=== PATIENT | male | born 1935 | race Caucasian/White ===

== ENCOUNTER 2018-10-12 13:53 | Emergency (ER) | payer BC ==
[~2018-10-12] VITALS: Ht 180.3 cm; Wt 74.4 kg
[2018-10-12] MEDS ORDERED: FLONASE 0.05%50 MCG NASAL (14:24)
[2018-10-12] MEDS ORDERED: DICLOFENAC SODI25 MG PO (14:25)
[2018-10-12] MEDS ORDERED: LIPITOR 20 MG T20 M1 PO (14:26)
[2018-10-12] MEDS ORDERED: COZAAR 25 MG TA25 M2 PO (14:26)
[2018-10-12] MEDS ORDERED: FLOMAX0.4 MG PO (14:26)
[2018-10-12] MEDS ORDERED: CELEXA20 MG PO (14:27)
[2018-10-12] MEDS ORDERED: VITAMIN D3400 UNIT PO (14:27)
[2018-10-12 14:56] LABS: ABSOLUTE BASOPHILS 0.1 thou/uL (0.0-0.2); ABSOLUTE EOSINOPHILS 0.1 thou/uL (0.0-0.7); ABSOLUTE LYMPHOCYTES 0.8 thou/uL (0.8-5.3); ABSOLUTE MONOCYTES 0.5 thou/uL (0.0-1.2); ABSOLUTE NEUTROPHILS 3.7 thou/uL (1.6-8.1); BASOPHILS 1.1 %; EOSINOPHILS 1.2 %; HEMATOCRIT 35.7 % (42.0-52.0); LYMPHOCYTES 16.3 %; MCH 33.1 pg (26.0-34.0); MCHC 33.6 g/dL (28.0-37.0); MCV 98.6 fL (80.0-100.0); MONOCYTES 8.9 %; MPV 8.1 fl. (7.2-11.1); NUCLEATED RBCS 0 /100WBC; PLATELET COUNT* 303 thou/uL (150-400); POLYS 72.5 %; RBC 3.62 mil/uL (4.50-6.00); RDW-CV 14.2 % (10.5-14.5); WBC 5.1 thou/uL (4.0-11.0)
[2018-10-12 15:02] LABS: CREATININE 1.4 mg/dL (0.6-1.3)
[2018-10-12 15:07] LABS: ALBUMIN 3.8 g/dL (3.4-5.0); TOTAL BILIRUBIN 0.9 mg/dL (<0.1-1.0); TOTAL PROTEIN 7.2 g/dL (6.4-8.2)
[2018-10-12 16:43] VITALS: BP 170/89
== END 2018-10-12 16:44 | disposition home or self-care (01) ==
LOC: M.ERS 13:53
PROVIDERS: Personal Emergency Response Attendant
DX: K59.00 Constipation, unspecified (principal); F17.210 Nicotine dependence, cigarettes, uncomplicated; I10 Essential (primary) hypertension; K21.9 Gastro-esophageal reflux disease without esophagitis; Z88.6 Allergy status to analgesic agent; Z90.49 Acquired absence of other specified parts of digestive tract

== ENCOUNTER → 2019-01-10 | Outpatient (CLI) | payer BC ==
[~2019-01-10] MED LIST: CELEXA20 MG PO; COZAAR 25 MG TA25 M2 PO; DICLOFENAC SODI25 MG PO; FLOMAX0.4 MG PO; FLONASE 0.05%50 MCG NASAL; LIPITOR 20 MG T20 M1 PO; VITAMIN D3400 UNIT PO
== END ==
LOC: M.ULTRA 12-31 10:30
DX: N43.3 Hydrocele, unspecified (principal); N44.2 Benign cyst of testis; N45.2 Orchitis

== ENCOUNTER 2019-09-01 14:09 | Inpatient (IN) | payer BC ==
[~2019-09-01] VITALS: Ht 177.8 cm; Wt 68.9 kg
[~2019-09-01 14:09] MED LIST changes: -COZAAR 25 MG TA25 M2 PO; +COZAAR100 MG PO
[2019-09-01 14:16] VITALS: BP 154/65
[2019-09-01] MEDS ORDERED: NAMENDA 5 MG TAB5 M1 PO (14:22)
[2019-09-01] MEDS ORDERED: ASA81BEC PO (14:22)
[2019-09-01 14:45] LABS: ABSOLUTE EOSINOPHILS 0.1 thou/uL (0.0-0.7); ABSOLUTE LYMPHOCYTES 0.8 thou/uL (0.8-5.3); ABSOLUTE MONOCYTES 0.9 thou/uL (0.0-1.2); ABSOLUTE NEUTROPHILS 8.1 thou/uL (1.6-8.1); BASOPHILS 0.5 %; EOSINOPHILS 0.6 %; HEMATOCRIT 34.4 % (42.0-52.0); HEMOGLOBIN 11.7 gm/dL (14.0-18.0); LYMPHOCYTES 8.5 %; MCH 33.5 pg (26.0-34.0); MCHC 34.1 g/dL (28.0-37.0); MCV 98.3 fL (80.0-100.0); MONOCYTES 8.8 %; MPV 8.3 fl. (7.2-11.1); NUCLEATED RBCS 0 /100WBC; PLATELET COUNT* 326 thou/uL (150-400); POLYS 81.6 %; RDW-CV 14.2 % (10.5-14.5); WBC 9.9 thou/uL (4.0-11.0)
[2019-09-01 14:47] LABS: CALCIUM 8.5 mg/dL (8.5-10.1); CREATININE 1.5 mg/dL (0.6-1.3); POTASSIUM 3.8 mmol/L (3.5-5.1)
[2019-09-01 14:48] LABS: APTT 27.1 Seconds (25.0-31.3); INR 1.1; PROTIME 10.9 Seconds (9.20-11.50)
[2019-09-01 15:02] LABS: ALBUMIN 3.7 g/dL (3.4-5.0); CK-MB MASS 3.4 ng/mL (<0.5-3.6); TOTAL BILIRUBIN 1.6 mg/dL (<0.1-1.0)
[2019-09-01 15:57] LABS: URINE BLOOD TRACE (Negative); URINE CLARITY CLEAR; URINE COLOR YELLOW; URINE GLUCOSE-RANDOM TRACE (Negative); URINE KETONES NEGATIVE (Negative); URINE LEUKOCYTES-REFLEX NEGATIVE (Negative); URINE NITRITE-REFLEX NEGATIVE (Negative); URINE PROTEIN 1+ (Negative); URINE SPECIFIC GRAVITY >= 1.030 (1.005-1.030)
[2019-09-01 16:10] LABS: ICTOTEST (BILI CONFIRMATORY) Negative (Negative); URINE BILIRUBIN 1+ (Negative)
--- NOTE | 2019-09-01 17:20 | NUR ---
PT MOVED TO ROOM #3 FOR SAFETY REASONS HE HAS DEMENTIA, IS TRYING TO GET OUT OF BED, HAS UNSTEADY GAIT AND NOW ATTEMPTING TO CHEW OFF HIS ID BAND. PT AGGITATED, IN HOSPITAL BED AND IS EATING HIS DINNER WITH HIS FINGERS.
--- NOTE | 2019-09-01 17:54 | NUR ---
DREAD, PT'S [id number], IS COMING TO SIT WITH THE PATIENT UNTIL PT'S OTHER DAUGHTER, WAGNER RANDOLPH, ARRIVES TO SIT WITH THE PATIENT AT 1900 TODAY. MOTOR INSPECTION MECHANIC MADE AWARE THAT THE PATIENT WILL NEED FAMILY MEMBER TO STAY WITH HIM THROUGHOUT THE NIGHT. MOTOR INSPECTION MECHANIC NOTIFIED ADMITTING SO THEY ALLOW PT'S DAUGHTER IN TO ER.
--- NOTE | 2019-09-01 18:09 | NUR ---
A TICK WAS SEEN ON THE PATIENT'S TESTICLES. IT WAS SUCCESSFULLY REMOVED BY DR. LEON.
--- NOTE | 2019-09-01 19:45 | NUR ---
PT'S DAUGHTER DREAD'S CELL PHONE NUMBER IS [phone].
[2019-09-01 21:00] VITALS: BP 152/67
--- NOTE | 2019-09-01 21:00 | NUR ---
RECEIVED REPORT FROM ER AND ADMITTED TO ROOM. DGT AT BEDSIDE AND ASSISTING WITH ADMISSION QUESTIONS. PT RESTLESS, LETHARGIC AND CONFUSED X4. PT ABLE TO FOLLOW VERY SIMPLE COMMANDS. LT HAND INGOT HEADER STRONG, RT INGOT HEADER ABSENT. NOT ABLE TO ANSWER QUESTIONS EXCEPT HIS NAME WAS BILL. UNABLE TO DO ACCURATE NIH SCALE TELEMETRY APPLIED SHOWING SR. SEE ADMISSION ASSESSMENT AND HX.
[2019-09-01 21:10] VITALS: BP 132/85
--- NOTE | 2019-09-01 22:30 | NUR ---
PT CONT TO BE RESTLESS BUT ABLE TO COOPERATE MORE. RT HAND GAS JOCKEY NOW MOD. ABLE TO HOLD UP RT ARM WITH DRIFT AND RT LEG WITH DRIFT. ABLE TO SWALLOW WATER WITHOUT COUGHING OR CHOKING. HS MEDS GIVEN, PT CHEWED THEM.
[2019-09-02] VITALS: BP 167/79
[2019-09-02 04:00] VITALS: BP 166/61
[2019-09-02 05:14] LABS: ABSOLUTE BASOPHILS 0.1 thou/uL (0.0-0.2); ABSOLUTE EOSINOPHILS 0.2 thou/uL (0.0-0.7); ABSOLUTE MONOCYTES 0.9 thou/uL (0.0-1.2); ABSOLUTE NEUTROPHILS 8.1 thou/uL (1.6-8.1); BASOPHILS 0.5 %; EOSINOPHILS 1.9 %; HEMATOCRIT 33.6 % (42.0-52.0); HEMOGLOBIN 11.4 gm/dL (14.0-18.0); LYMPHOCYTES 9.9 %; MCH 33.7 pg (26.0-34.0); MONOCYTES 8.4 %; MPV 8.2 fl. (7.2-11.1); NUCLEATED RBCS 0 /100WBC; PLATELET COUNT* 302 thou/uL (150-400); POLYS 79.3 %; RBC 3.39 mil/uL (4.50-6.00); RDW-CV 14.3 % (10.5-14.5); WBC 10.2 thou/uL (4.0-11.0)
[2019-09-02 05:35] LABS: ALBUMIN 3.3 g/dL (3.4-5.0); ALKALINE PHOSPHATASE 80 U/L (46-116); ANION GAP 8 mmol/L (7-16); BUN 39 mg/dL (7-18); CALCIUM 8.5 mg/dL (8.5-10.1); CHLORIDE 108 mmol/L (98-107); CHOLESTEROL 79 mg/dL (<200); CO2 27 mmol/L (21-32); CREATININE 1.1 mg/dL (0.6-1.3); GLUCOSE 113 mg/dL (70-99); HDL CHOLESTEROL 28 mg/dL (>40); LDL CHOLESTEROL 42 mg/dL (<100); POTASSIUM 3.3 mmol/L (3.5-5.1); SGOT 36 U/L (15-37); SGPT 16 U/L (30-65); SODIUM 143 mmol/L (136-145); TC:HDL 2.8 Ratio (Not establshd); TOTAL BILIRUBIN 1.2 mg/dL (<0.1-1.0); TOTAL PROTEIN 6.4 g/dL (6.4-8.2); TRIGLYCERIDE 49 mg/dL (<150); VLDL 10 mg/dL (<40)
[2019-09-02 05:45] LABS: SERUM ASSESSMENT Clear
--- NOTE | 2019-09-02 06:18 | NUR ---
REMAINS CONFUSED ALL NIGHT. ABLE TO MOVE ALL EXTREMITIES. STOOD AT BEDSIDE. INCONT OF URINE. FREQ REMOVING GOWN AND TELE PACK. DGT STAYED AT BEDSIDE. TELEMETRY SHOWING SR. HS GOALS OF REST AND SAFETY ACHIEVED. HOURLY ROUNDING OSBERVED.
[2019-09-02 08:00] VITALS: BP 150/70
[2019-09-02 11:30] VITALS: BP 165/84
--- NOTE | 2019-09-02 15:38 | EKG ---
[place] [address] ELECTROCARDIOGRAM REPORT Name: FELIZOSMAN Room: [address] ADM IN .R.#: [id number] Admission: 09/01/19 Attend Phys: Vinicio Hyde Discharge: Date of : 31 Date of Service: 09/01/19 1429 Report #: [id number] THIS REPORT FOR: //name// [facility] ED Test Date: 2019-09-01 Test Time: 14:29:15 Pat Name: OSMAN PIPER Department: Room: [facility] Gender: M Tumbling And Rolling Supervisor: ELENA : 1935 Requested By: Javier Bryant Order Number: [id number] MD: Toño Gupta Measurements Intervals Dewart Rate: 88 P: 27 [place]: 148 QRS: -4 QRSD: 87 T: 30 QT: 344 QTc: 417 Interpretive Statements Sinus rhythm Probable left atrial enlargement No previous ECG available for comparison Electronically Signed On 09-02-2019 15:37:45 CDT by Toño Gupta [email or web address] <ELECTRONICALLY SIGNED> By: Toño Gupta MD, [facility] 09/02/19 1537 1429 1429 Toño Gupta MD, [facility] /EPI
[2019-09-02 16:00] VITALS: BP 164/86
--- NOTE | 2019-09-02 16:56 | NUR ---
PT.IN BED. PT.CONFUSED, TRYS TO GET OUT OF BED. SPOKE WITH DAUGHTER,MAMADOU,AT BEDSIDE. SHE IS HIS DPOA. EXPLAINED SHE IS HIS STEPDAUGHTER BUT HE APPOINTED HER HIS DPOA. SHE HAS 2 STEPSISTERS AND A STEPBROTHER AND HER OWN BROTHER. SHE SAID PT.LIVES ALONE AND SHOULD NOT HAVE BEEN. EVERYONE DDES NOT AGREE BUT NOW SHE WILL BE THE ONE TO MAKE THE DECISIONS SINCE IT HAS COME TO HIM HAVING A STROKE. HE ALSO HAD BEEN DRIVING. DOES NOT COOK, NO USE OF DME AND HASN'T BEEN DOING HIS PERSONAL HYGEINE. THEY HAD BEEN TAKING TURNS CHECKING IN ON HIM,BRINGING HIM FOOD,SHOPPING, ETC. EXPLAINED DRS RECOMMENDATIONS OF LTC WITH [facility]. EXPLAINED THERAPY HAS NOT BEEN ABLE TO SEE PT.DUE TO HIS CONFUSION. GAVE HER LIST OF SNFS THAT TAKE HIS INSURANCE. ALSO A LIST OF LTC FACIITIES. SHE WILL REVIEW THEM AND MAKE SOME CHOICES. CM WILL FOLLOW UP WITH HER TOMORROW.
[2019-09-02 20:00] VITALS: BP 182/77
--- NOTE | 2019-09-02 20:00 | NUR ---
RECEIVED REPORT AND ASSUMED CARE OF PT, ASSESSMENT COMPLETED. PT VERY RESTLESS AND UNCOOPERATIVE. SITTER AT BEDSIDE. TELEMETRY ON SHOWING SR. WILL CONT TO MONITOR AND ASSIST NEEDED.
[2019-09-03 04:00] VITALS: BP 178/66
--- NOTE | 2019-09-03 05:58 | NUR ---
PT RESTLESS AND ATTEMPTING TO GET OUT OF BED, PT STRONG AND HAS BEEN HITTING ALONG WITH GRABBING FOR INTENT TO HARM. IM AND IV MEDS GIVEN. NEEDED 4 ASSIST TO RESTART IV. INCONT OF URINE. NO CHANGE IN TELEMETRY. HS GOALS OF REST AND SAFETY PARTICALLY ACHIEVED. SITTER REMAINS AT BEDSIDE FOR PT SAFETY.
--- NOTE | 2019-09-03 11:21 | NUR ---
DISCUSSED WITH PTS DAUGHTER AND MAMADOU VARELA. SHE SAID SAID PT.MAY NEED TO GO TO [facility] PRIOR TO SNF IF HE DOESN'T CALM DOWN SOME. IS NEEDING 1:1 SITTER. AT DISCHARGE SHE WOULD LIKE TO HAVE HIM GO TO SNF FIRST HE WILL NEED SOME REHAB AND THEN ONTO LTC/[facility]. SHE WOULD LIKE TO TRY [facility] AND [facility]. EXPLAINED THESE MAY NOT HAVE LTC OPTIONS. ALSO DISCUSSED CODE STATUS. VISH LOPEZ IN DISCUSSION,ALSO. DAUGHTER SAID SHE WOULD THINK ABOUT IT. SHE IS AWARE OF THIS TIME HE IS A FULL CODE.
[2019-09-03 11:52] VITALS: BP 132/66
--- NOTE | 2019-09-03 17:19 | 2DMMODE ---
[place] [address] 2 D/M-MODE ECHOCARDIOGRAM Name: OSMAN PIPER Room: [address] IN [facility]#: [id number] Admission: 09/01/19 Attend Phys: Vinicio Hyde Discharge: Date of : 31 Date of Service: 09/03/19 1718 Report #: [id number] THIS REPORT FOR: cc: Toño Mcdonald John E. DO Liston, Michael J. MD [facility] ~ APPROVED REPORT Study performed: 09/03/2019 11:32:35 EXAM: Comprehensive 2D, Doppler, and color-flow Echocardiogram Patient Location: In-Patient BSA: 1.90 HR: 80 bpm BP: 178/66 mmHg Other Information Study Quality: Technically Difficult Technically limited study due to inability to position patient, uncooperative patient. Indications CVA/TIA Echo Enhancing Agent Indication: Rule out Shunt Agent(s) / Amount(s) Used: Agitated Saline cc 2D Dimensions IVSd: 14.93 (7-11mm) LVOT Diam: 21.16 (18-24mm) LVDd: 42.49 mm PWd: 13.44 (7-11mm) Ascending Ao: 28.79 (22-36mm) LVDs: 36.53 (25-40mm) Aortic Root: 37.28 mm Volumes Left Atrial Volume (Systole) LA ESV Index: 23.60 mL/m2 Aortic Valve AoV Peak David.: 1.31 m/s AO Peak Gr.: 6.84 mmHg LVOT Max P.77 mmHg AO Mean Gr.: 3.69 mmHg LVOT Mean P.13 [place] [address] 2 D/M-MODE ECHOCARDIOGRAM Name: FELIZOSMAN Room: [address] IN [facility].#: [id number] Admission: 09/01/19 Attend Phys: Vinicio Hyde Discharge: Date of : 31 Date of Service: 09/03/19 1718 Report #: [id number] LVOT Max V: 1.20 m/s AO V2 VTI: 23.12 cm LVOT Mean V: 0.82 m/s DAYDAY (VTI): 3.30 cm2 LVOT V1 VTI: 21.67 cm Mitral Valve MV Mean Gr.: 3.00 mmHg E/A Ratio: 0.41 MV Decel. Time: 163.68 ms MV E Max David.: 0.70 m/s MV PHT: 47.47 ms MVA (PHT): 4.63 cm2 TDI E/Lateral E': 14.00 E/Medial E': 10.00 Medial E' David.: 0.07 m/s Lateral E' David.: 0.05 m/s Pulmonary Valve PV Peak David.: 1.06 m/s PV Peak Gr.: 4.48 mmHg Left Ventricle The left ventricle is normal size. There is normal LV segmental wall motion. Mild concentric left ventricular hypertrophy. Left ventricular systolic function is normal. LVEF is 60-65%. Grade I - abnormal relaxation pattern. Right Ventricle The right ventricle is normal size. The right ventricular systolic function is normal. Atria The left atrium size is normal. Lipomatous hypertrophy of the interatrial septum is noted. 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 Right atrium is mildly dilated. Aortic Valve The aortic valve is normal in structure. No aortic regurgitation is present. There is no aortic valvular stenosis. Mitral Valve There is mitral annular calcification. Trace mitral regurgitation. Mild mitral stenosis. Tricuspid Valve The tricuspid valve is normal in structure. Trace [place]icus[place] [address] 2 D/M-MODE ECHOCARDIOGRAM Name: OSMAN PIPER Room: [address]#: [id number] Admission: 09/01/19 Attend Phys: Vinicio Hyde Discharge: Date of : 31 Date of Service: 09/03/19 1718 Report #: [id number] Pulmonic Valve The pulmonary valve is normal in structure. There is no pulmonic valvular regurgitation. Great Vessels The aortic root is normal in size. IVC is normal in size and collapses >50% with inspiration. Pericardium There is no pericardial effusion. <Conclusion> The left ventricle is normal size. Mild concentric left ventricular hypertrophy. Left ventricular systolic function is normal. LVEF is 60-65%. Grade I - abnormal relaxation pattern. Right atrium is mildly dilated. 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 Trace mitral regurgitation. Trace tricuspid regurgitation. IVC is normal in size and collapses >50% with inspiration. <ELECTRONICALLY SIGNED> By: Mitch Solorio MD, FACC 09/03/191717 17 17 Mitch Solorio MD, FACC /INF
--- NOTE | 2019-09-03 17:51 | NUR ---
PT CONFUSED BUT COOPERATIVE WITH DIRECTION. DTR AT BS THIS AM. SITTER IN ROOM FOR PT SAFETY HE CLIMBS OUT OF BED FREQUENTLY. POOR APPETITE. WATER ENCOURAGED. NSR ON MONITOR
[2019-09-03 20:00] VITALS: BP 157/88
[2019-09-04] VITALS: BP 153/88
[2019-09-04 04:00] VITALS: BP 117/59
[2019-09-04 08:36] VITALS: BP 99/55
--- NOTE | 2019-09-04 09:37 | NUR ---
ASSUMED CARE OF PT THIS AM AROUND 714- PROCESSING TECHNICIAN IN PLACE ORDERED, TRACING SR- UPON ASSESSMENT PT NOTED TO BE RESTING IN BED, SITTER AT SIDE FOR SAFETY- PT NOTED TO BE A LITTLE RESTLESS THIS AM, UP AND DOWN IN BED- A&O X1 WITH NOTED CONFUSSION R/T DEMENTIA- CONT OF B/B- ASSIST X1 WITH TRANSFERS- LCTA, RESP EVEN AND [id number], O2 SAT 98% ON RA- ABD SOFT/ROUND/NON-TENDER, BS X4 QUADS- LAST BM UNKNOWN- UP TO BED SIDE CHAIR WITH BREAKFAST THIS AM, FAIR PO INTAKE NOTED- UNABLE TO ACCURATLEY OBTAIN NIH R/T CONFUSSION AND INABILTY TO FOLLOW COMMANDS- PT DENIES ANY C/O PAIN/DISCOMFORT AT THIS TIME- CALL LIGHT AND PERSONAL BELONGINGS WITH IN REACH- HOURLY ROUNDS IN PLACE R/T SAFETY/NEEDS- ALL NEEDS MET AT THIS TIME-WCTM
[2019-09-04 12:00] VITALS: BP 130/62
--- NOTE | 2019-09-04 12:00 | NUR ---
FAXED REFFERALS FOR INITIAL SNF AND THEN POSSIBLE LTC TO [facility]. PT.CALMING SOME AND MORE COOPERATIVE.
[2019-09-04 16:00] VITALS: BP 106/65
[2019-09-04 20:00] VITALS: BP 157/70
[2019-09-05] VITALS: BP 148/71
[2019-09-05 08:00] VITALS: BP 166/75
--- NOTE | 2019-09-05 10:00 | NUR ---
SPOKE WITH DAUGHTER,MAMADOU. SHE SAID SHE SPOKE WITH [facility]AND [facility]AB. ONE OF HER RELATIVES HAD LIVED AT [facility] SOME YEARS AGO. [facility] SAID THEY CAN NOT ACCEPT NEW PTS UNTIL SEPTEMBER 10. THEY CAN TAKE PT.FOR LTC THEN. MAMADOU SAID SHE WOULD STILL LIKE TO START WITH SNF AT SOMEWHERE UP HERE AND THEN WHEN FINISHED WITH SNF TAKE HIM TO [facility].
[2019-09-05 12:00] VITALS: BP 136/63
[2019-09-05 16:00] VITALS: BP 177/106
[2019-09-05 20:00] VITALS: BP 106/54; BP 85/48
[2019-09-06] VITALS: BP 111/49
[2019-09-06 04:00] VITALS: BP 152/68
[2019-09-06 08:11] VITALS: BP 134/60
--- NOTE | 2019-09-06 09:30 | NUR ---
CALLED [facility] TO SEE IF THEY WOULD BE ABLE TO ACCEPT PT.TO A SKILLED BED WHEN READY FOR DISCHARGE. SHE SAID THEY ARE DECLINING PT. CALLED [facility] TO ASK THE SAME. HAD TO LEAVE . [facility] RETURNED CALL AND SAID THE TEAM IS REVIEWING REFERRLA. PT.MORE IMPLUSIVE DURING THE NIGHT. MORE MED ADJUSTMENT TODAY.
--- NOTE | 2019-09-06 09:40 | NUR ---
ASSUMED CARE OF PT THIS AM AROUND 714- CORRECTIONAL SUPERVISOR LIEUTENANT IN PLACE ORDERED, TRACING SR- UPON ASSESSMENT PT NOTED TO BE RESTING IN BED, EYES CLOSED- PT NOTED TO BE SOMULENT AND HARD TO WAKE R/T ATIVAN ADMINISTRATION ON PRIOR SHIFT-Q [address] INDICATED- VSS, O2 SAT 96% ON RA-LCTA/DIMINISHED IN BASES- ABD SOFT/ROUND/NON-TENDER, BS X4 QUADS- UNABLE TO WAKE THIS AM FOR BREAKFAST- DAUGHTER AT BEDSIDE THIS AM- IV NOTED TO RIGHT FA INTACT AND SL-CALL LIGHT AND PERSONAL BELONGINGS WITH IN REACH- BED ALARM IN PLACE AND WORKING FOR PT SAFETY/NEEDS- HOURLY ROUNDS IN PLACE R/T SAFETY/NEEDS- ALL NEEDS MET AT THIS TIME-WCTM
[2019-09-06 12:20] VITALS: BP 134/60
--- NOTE | 2019-09-06 13:42 | NUR ---
WOUND NURSE: PATIENT SEEN TO ADDRESS SHALLOW INTACT DRY BROWN SCABS ON RIGHT LATERAL MALLEOLUS PROBABLY RELATED TO FRICTION -- PATIENT SLIDING FOOT ALONG THE MATTRESS. WILL OBTAIN HEELMEDIX BOOT FOR RIGHT FOOT FOR PROTECTION FROM FRICTIN AND PRESSURE.
[2019-09-06 15:55] VITALS: BP 157/67
[2019-09-06 20:00] VITALS: BP 148/80
[2019-09-07] VITALS: BP 140/84
[2019-09-07 04:00] VITALS: BP 171/73
--- NOTE | 2019-09-07 05:13 | NUR ---
ASSUMED PT CARE AT APPROX 1930. PT IS SLEEPING BUT IS AROUSABLE WHEN NAME IS CALLED, PT IS ORIENTED TO SELF. ALLIED HEALTH INSTRUCTOR IS TRACING SR. ASSESSMENT DONE AND CHARTED. RIGHT LE BOOT KEPT IN PLACE. PT TRIED TAKING BOOT OFF MULTIPLE TIMES THIS SHIFT AND WOULD NOT KEEP IT ON. PT WAS SLEEPING MOST OF THE NIGHT. NO ACUTE CHANGES THROUGHOUT THIS SHIFT. CALL LIGHT WITHIN REACH. HOURLY ROUNDING DONE AND HIGH FALL PRECAUTIONS IN PLACE FOR PT SAFETY.
[2019-09-07 08:00] VITALS: BP 119/73
--- NOTE | 2019-09-07 11:07 | NUR ---
PT'S DTR AT BS. PT MORE CONFUSED AND WEAKER THAN PREVIOUSLY THIS WEEK. PT REFUSES TO EAT OR DRINK EXCEPT A FEW SIPS. DTR INTERESTED IN HOSPICE AT LTC INSTEAD OF SNF PT GETS AGITATED WITH ACTIVITY AND HAS NOT PROGRESSED WITH PT THIS WEEK BUT WILL DISCUSS WITH OTHER DTR. HOSPICE VISIT TO BE ARRANGED ON MONDAY. ENCOURAGED DTR TO BRING FOOD IN TO SEE IF PT WILL EAT HE REFUSES FOR STAFF
--- NOTE | 2019-09-07 11:43 | NUR ---
SPOKE TO [facility]. PAPER WORK FAXED. ARRANGED FOR INFORMATIONAL VISIT ON MONDAY AT 1300. DTR ROMAN INFORMED.
[2019-09-07 12:00] VITALS: BP 132/92
[2019-09-07 16:00] VITALS: BP 147/85
--- NOTE | 2019-09-07 17:19 | NUR ---
PT RESTING IN BED THROUGHOUT SHIFT,RESTLESS. ALARMS ON. INCONTINENT PT IN CHAIR FOR A FEW HOURS THIS AFTERNOON WITH MAX ASSIST. PT INCREASED WEAKNESS FROM EARLIER THIS WEEK AND MORE CONFUSED PER DTR.PT DROWSY BUT RESISTS SLEEP. PT NOT SPEAKING JUST MAKES INTELLIGBLE SOUNDS. PT ATTEMPTS TO BE COMBATIVE TO STAFF BUT EASILY REDIRECTED. NO PRN MEDS WERE GIVEN FOR AGITATION PT CALMS QUICKLY WHEN LEFT ALONE. PT REFUSES TO EAT AND WILL ONLY TAKE SMALL SIPS OF ENSURE. IV BOLUS GIVEN THIS AFTERNOON. DTR AT BS. PLAN OF CARE DISCUSSED. SHE STATES SHE WOULD LIKE HOSPICE TO COME SEE PT AND POSSIBLY DC PT TO LTC WITH HOSPICE.
[2019-09-07 20:00] VITALS: BP 173/79
[2019-09-08] VITALS: BP 165/93
[2019-09-08 03:47] VITALS: BP 148/88
--- NOTE | 2019-09-08 07:05 | NUR ---
PT ORIETED TO SELF @ TIMES. SPEECH MORE LEGIBLE THIS AM THAN LAST NIGHT. PT RESTLESS BUT NOT TRYING TO CLIMB OUT OF BED. SWALLOWED MEDS IN PUDDING. INCONTINENT. BED CHANGE THIS AM. TURNS SELF INDEPENDENTLY. CALL LIGHT IN REACH. HOURLY ROUNDING FOR SAFETY.
[2019-09-08 09:00] VITALS: BP 113/47
--- NOTE | 2019-09-08 09:30 | NUR ---
ASSUMED PT. CARE AND RECEIVED REPORT AT 0730. PT. WILL AROUSE, IS NOT ANSWERING QUESTIONS OR FOLLOWING COMMANDS. ON RA AT 94%. INCONT. OF URINE AND PT. REMOVING GOWN AND BLANKETS, SOMEWHAT RESTLESS IN BED. FULL ASSESSMENT COMPLETED, REFER TO CHARTING. PT. ASSISTED WITH BREAKFAST, BUT WOULD ONLY EAT 2 BITES AND DRANK PART OF ENSURE. FALL PRECAUTIONS IN PLACE, WILL CONTINUE WITH PLAN OF CARE.
[2019-09-08 11:38] LABS: CALCIUM 8.8 mg/dL (8.5-10.1); MAGNESIUM 2.3 mg/dL (1.8-2.4); POTASSIUM 3.9 mmol/L (3.5-5.1)
[2019-09-08 16:00] VITALS: BP 125/88
--- NOTE | 2019-09-08 17:53 | NUR ---
PT. STABLE THROUGH OUT SHIFT. PT. DID INCREASE INTAKE AT LUNCH WITH FAMILY AT BEDSIDE, ATE PUDDING AND ENSURE ONLY AT DINNER, SPIT OUT OTHER FOODS OFFERED. PT. UP TO RECLINER TODAY, 2 PERSON ASSIST DOES NOT FOLLOW COMMANDS. PT CONTINUES TO WANT TO BE WITHOUT CLOTHING.
--- NOTE | 2019-09-08 19:07 | NUR ---
AT APPROX. 1830 PT. BECOMING VERY AGRIVATED, YELLING/SWINGING/KICKING AT STAFF. CHAR FILTER TANK TENDER HEAD CURRENTLY AT BEDSIDE FOR SAFETY, PAGED FOR PRN MED.,AWAITING CALL BACK.
--- NOTE | 2019-09-09 05:54 | NUR ---
OBSERVED PT FROM NURSING STATION ALL NIGHT, PT WAS COMBATIVE AND CONFUSED AT START OF SHIFT, GIVEN MEDICATION TO RELAX PT. PT RESTED COMFORTABLE THROUGHOUT SHIFT WITHOUT INCIDENT. VITALS SIGNS HELD TO REDUCE ADJITATION. PT ROOM IS RIGHT INFRONT OF NUSES DESK, VEIWED OFTEN. PT OBSERVED SELF TURNING AND SITTING UP AT TIMES, PT WAS NOT IMPUSIVE OR ADJITATED THE REST OF SHIFT.
[2019-09-09 08:00] VITALS: BP 110/68
[2019-09-09 12:20] VITALS: BP 128/55
--- NOTE | 2019-09-09 16:30 | NUR ---
[facility] evaluated Pt today, per nurse, Pt meets criteria for hospice admission, plan is for Pt to dc to [facility] with hospice. Cm spoke with Cecy at [facility], [facility] informed [facility] of referral and faxed clinicals. CM faxed covid results and today's clinicals. [facility] is able to accept Pt for LTC on 09/10, updated nurse. Plan dc to [facility] on 09/10 with [facility]. CM following.
[2019-09-09 16:51] VITALS: BP 170/83
--- NOTE | 2019-09-09 19:24 | NUR ---
VS CHARTED, NOT ORIENTED- DEMENTIA- CAN BECOME AGITATED, ROOM AIR, BEDREST, FOUR RAILS UP, SETUP AND FEEDER, HOURLY ROUNDING PERFORMED, CALL LIGHT WITHIN REACH. WAITING FOR HOSPICE PLACEMENT IN [facility]
[2019-09-09 20:00] VITALS: BP 102/82
[2019-09-10] VITALS: BP 168/90
--- NOTE | 2019-09-10 07:16 | NUR ---
VSS. SEE MAR.SEE CHARTING.
[2019-09-10 08:00] VITALS: BP 168/75
[2019-09-10 12:00] VITALS: BP 157/88
--- NOTE | 2019-09-10 14:36 | NUR ---
HEATH spoke with Kaitlyn from [facility] [phone], they plan to be at the hospital tomorrow at 9am to sign admission paperwork, plan is for Pt to dc to [facility] tomorrow. Per Kaitlyn, stepdtr is wanting transportation arranged for Pt.
[2019-09-10 16:32] VITALS: BP 174/113
[2019-09-10 16:57] VITALS: BP 170/92
--- NOTE | 2019-09-10 18:00 | NUR ---
VS CHARTED, HYPERTENSIVE MIDDAY INTO EVENING-DR NOTIFIED- MEDS ORDERED, OX0, DEMENTIA- CAN BECOME AGITATED, DROWSY, INCONTINENT B&B, HOURLY ROUNDING PERFORMED. DRINKS OFFERED, ASSISTANCE WITH FEEDING AND ADLS.
[2019-09-10 20:10] VITALS: BP 193/87
[2019-09-11] VITALS: BP 153/74
[2019-09-11 03:45] VITALS: BP 127/69
[2019-09-11 08:00] VITALS: BP 116/69
[2019-09-11] MEDS ORDERED: COLACE 100 MG100 MG PO (09:15)
[2019-09-11] MEDS ORDERED: TRAZODONE HCL100 MG PO (09:15)
[2019-09-11] MEDS ORDERED: DIVALPROEX SOD125 MG PO (09:15)
[2019-09-11] MEDS ORDERED: MELATONIN5 M1 PO (09:15)
[2019-09-11] MEDS ORDERED: VISTARIL 25 MG25 M1 PO (09:15)
[2019-09-11] MEDS ORDERED: CLOPIDOGREL75 MG PO (09:17)
[2019-09-11 12:11] VITALS: BP 116/69
[2019-09-11 12:30] VITALS: BP 145/96
--- NOTE | 2019-09-11 12:39 | NUR ---
VS CHARTED, OX0- DEMENTIA- CAN BECOME AGITATED, MOSTLY DROWSY, INCONTINENT B&B, DRINKS ENCOURAGED- NEEDS ASSISTANCE WITH FEEDING AND ADLS, HOURLY ROUNDING PERFORMED. REC DISCHARGE ORDERS, PATIENT GOING TO [facility], REPORT CALLED, PATIENT WILL BE UNDER CARE OF [facility]. TRANSFER PACKET GIVEN TO EMS TRANSPORT- PACKET FAXED TO [facility] PER LICENSED PRACTICAL NURSE CLINIC NURSE, NO IV
--- NOTE | 2019-09-11 13:53 | NUR ---
Pt to dc to [facility] today with hospice, pt dtr Keily aware as she arranged with Cecy and [facility]. SW arranged for ambulance transportation at requested time of 3 pm. SW spoke with Cecy in admissions at [facility] to confirm acceptance and SW faxed dc summary to [facility]. Chart was copied for continuation of care. Pt nurse spoke with Akilah and Cecy said that they were working on the contract with [facility] or would sign with another hospice for the family if needed. NR ph [phone] RN with [facility]: [phone]
== END 2019-09-11 15:30 | disposition hospice, home (50) | DRG 65 ==
LOC: M.ERS 14:09 → M.TBA-ER 15:31 → M.2W 15:31
PROVIDERS: Family Medicine; Internal Medicine; ADMIT Internal Medicine; ATTEND Internal Medicine
DX: I63.9 Cerebral infarction, unspecified (principal); G93.40 Encephalopathy, unspecified; Q21.1 Atrial septal defect; F05 Delirium due to known physiological condition; K21.9 Gastro-esophageal reflux disease without esophagitis; F17.210 Nicotine dependence, cigarettes, uncomplicated; W57.XXXA Bitten or stung by nonvenomous insect and other nonvenomous arthropods, initial encounter; E78.5 Hyperlipidemia, unspecified; I12.9 Hypertensive chronic kidney disease with stage 1 through stage 4 chronic kidney disease, or unspecified chronic kidney disease; N18.2 Chronic kidney disease, stage 2 (mild); N40.0 Benign prostatic hyperplasia without lower urinary tract symptoms; G47.9 Sleep disorder, unspecified; G47.00 Insomnia, unspecified; F01.50 Vascular dementia, unspecified severity, without behavioral disturbance, psychotic disturbance, mood disturbance, and anxiety; G30.0 Alzheimer's disease with early onset; F02.80 Dementia in other diseases classified elsewhere, unspecified severity, without behavioral disturbance, psychotic disturbance, mood disturbance, and anxiety; F31.9 Bipolar disorder, unspecified; Z51.5 Encounter for palliative care; Z66 Do not resuscitate; Z03.818 Encounter for observation for suspected exposure to other biological agents ruled out; Z90.89 Acquired absence of other organs; Z79.82 Long term (current) use of aspirin; Z79.899 Other long term (current) drug therapy; Z88.8 Allergy status to other drugs, medicaments and biological substances; Y93.89 Activity, other specified; Y99.8 Other external cause status; Y92.89 Other specified places as the place of occurrence of the external cause